=== PATIENT | male | born 1960 | race Caucasian/White ===

== ENCOUNTER 2017-05-24 05:15 | Inpatient (IN) | payer BC ==
[2017-05-11 11:21] VITALS: BMI 25.0
--- NOTE | 2017-05-11 11:44 | PAT Medication Instructions ---
Service Date May 11, 2017. Current Home Medication List Naproxen (Aleve), 440 MG PO QAM Pseudoephedrine-Guaifenesin (Mucinex D), 1 TAB PO PRN Medication Instructions For Your Scheduled Surgery - Hold the following medications 1 week prior to surgery per your surgeon's instructions: Naproxen (Aleve), 440 MG PO QAM - Take the following medications as scheduled the night before surgery: Pseudoephedrine-Guaifenesin (Mucinex D), 1 TAB PO PRN (if needed) If you have any questions please call us at [phone] or [phone] or [phone]
--- NOTE | 2017-05-11 12:46 | DIAGNOSTIC IMAGING REPORT ---
CHEST 2 VIEWS ROUTINE CLINICAL HISTORY: PAT preoperative evaluation COMPARISON STUDY: 07/08/2015 FINDINGS: The bones soft tissues and hemidiaphragms are normal. The cardiomediastinal silhouette is normal. The lungs are clear. The pulmonary vasculature is normal. IMPRESSION: Negative chest. The above report was generated using voice recognition software. It may contain grammatical, syntax or spelling errors. Electronically signed by: Travis Erazo M.D. 05/11/2017 12:45 PM Dictated Date/Time: 05/11/2017 12:44 PM
[2017-05-11 13:34] LABS: BASO % 0.2 %; BASO ABS # 0.02 K/uL (0-0.2); COMPLETE YES; EOS % 1.1 %; HEMATOCRIT 40.3 % (42-52); IG% 0.1 %; LYMPH % 10.4 %; LYMPH ABS # 0.87 K/uL (1.2-3.4); MEAN CELL VOLUME 96.2 fL (80-100); MEAN CORPUSCULAR HEMOGLOBIN 32.2 pg (25-34); MEAN CORPUSCULAR HGB CONC 33.5 g/dl (32-36); MEAN PLATELET VOLUME 10.7 fL (7.4-10.4); MONO % 8.1 %; NEUT % 80.1 %; PLATELET COUNT 257 K/uL (130-400); RED BLOOD COUNT 4.19 M/uL (4.7-6.1)
[2017-05-11 13:43] LABS: PARTIAL THROMBOPLASTIN RATIO 1.2; PROTHROMBIN TIME (PATIENT) 10.3 SECONDS (9.0-12.0)
[2017-05-11 13:53] LABS: BUN/CREATININE RATIO 27.4 (10-20); CALCIUM 8.9 mg/dl (8.5-10.1); CREATININE 0.73 mg/dl (0.60-1.40); POTASSIUM 4.2 mmol/L (3.5-5.1)
[2017-05-11 13:54] LABS: URINE APPEARANCE CLEAR (CLEAR); URINE BILIRUBIN NEG (NEG); URINE COLOR YELLOW; URINE NITRITE NEG (NEG); URINE SPECIFIC GRAVITY 1.027 (1.000-1.030); UROBILINOGEN NEG (NEG); ZZUR CULT IF INDIC CLEAN CATCH NO
[2017-05-11 13:56] LABS: MANUAL MICROSCOPIC REQUIRED? NO; REVIEW REQ? NO
[2017-05-12 06:44] LABS: ESTIMATED AVERAGE GLUCOSE 114 mg/dl; HA1C FLAG Normal (Normal)
--- NOTE | 2017-05-23 19:56 | HISTORY & PHYSICAL EXAMINATION ---
DATE OF ADMISSION: 05/24/2017 CHIEF COMPLAINT: Chronic left hip pain. HISTORY OF PRESENT ILLNESS: This is a 57-year-old male patient of Dr. Dalton'moises complaining of chronic left hip pain, longstanding, now progressively getting worse. The patient has failed conservative treatment including anti-inflammatories and home exercise program. The patient has increased pain with weightbearing activities and his pain does interfere with his activities of daily living. PAST MEDICAL HISTORY: Osteoarthritis, sciatica, otherwise healthy 67-year-old male. SOCIAL HISTORY: Nonsmoker, 5 drink per week drinker. No smoking. PAST SURGICAL HISTORY: Right hip resurfacing. FAMILY HISTORY: Noncontributory. REVIEW OF SYSTEMS: The patient complains of chronic left hip pain. Otherwise, denies any shortness of breath, chest pain, nausea, vomiting or any other joint complaints. MEDICATIONS: Aleve twice a day as needed. No prescription drugs. ALLERGIES: No known drug allergies. PHYSICAL EXAMINATION: GENERAL: Well-developed, well-nourished 57-year-old male in no acute distress. He is alert and oriented x3 and pleasant. HEENT: Normocephalic, atraumatic. Extraocular motions are intact. Pupils are equal and reactive to light. HEART: Regular rate and rhythm, no murmurs appreciated. LUNGS: Clear. ABDOMEN: Soft, nontender, bowel sounds are present. EXTREMITIES: He has pain with internal and external rotation passively with the hip into the groin and lateral hip area. He has 5/5 strength. NEUROLOGIC: Neurovascularly, he is intact in his left lower extremity. DIAGNOSES: Left hip end-stage osteoarthritis. He has a history of osteoarthritis and sciatica. Otherwise, a healthy 57-year-old male. PLAN: The patient was advised of his diagnosis. Indications, risks, benefits, and postop course have all been reviewed. The patient wishes to proceed with a left total hip arthroplasty. Necessary consent forms, preoperative testing and clearances will be obtained.
[2017-05-24] VITALS (10 sets, daily range): BP systolic 98–113; BP diastolic 60–69; PULSE 55–72; TEMP 36.5–36.8; O2SAT 95–99; Ht 180.3 cm; Wt 82.9 kg
[~2017-05-24] VITALS: Ht 180.3 cm; Wt 82.9 kg
[~2017-05-24 05:15] MED LIST: NAPR1TAB9 PO; PSEU60TA80 PO
[2017-05-24] MEDS ORDERED: ROPIVACAINE 5MG/ML 30 ML 150 MG, BUPIVACAINE 0.5% MPF INJ 30 ML, EpINEphrine HCL INJ 0.... INFIL SCH ×7 (06:00)
[2017-05-24] MEDS ORDERED: DEXAMETHASONE 4 MG TAB PO SCH (06:00)
[2017-05-24] MEDS ORDERED: LACTATED RINGER'S 1000ML 1,000 ML IV SCH (06:00)
[2017-05-24] MEDS ORDERED: LACTATED RINGER'S 1000ML IV SCH (06:00)
[2017-05-24] MEDS ORDERED: METOCLOPRAMIDE HCL 10 MG TAB PO SCH (06:00)
[2017-05-24] MEDS ORDERED: CEFAZOLIN 2000MG IV PUSH 10 ML IV SCH (06:00)
[2017-05-24] MEDS ORDERED: LACTATED RINGER'S 1000ML 500 ML IV ONE (06:00)
[2017-05-24] MEDS ORDERED: ACETAMINOPHEN 500 MG TAB PO SCH (06:00)
[2017-05-24] MEDS ORDERED: FAMOTIDINE 20 MG TAB PO SCH (06:00)
[2017-05-24] MEDS ORDERED: GABAPENTIN 300 MG CAP PO SCH (06:00)
[2017-05-24] MEDS ORDERED: CeleBREX 200 MG CAP PO SCH (06:00)
[2017-05-24] MEDS ORDERED: BUPIVACAINE 0.5 % 5 MG/1 ML PF 10ML VIAL ONE (06:28)
[2017-05-24] MEDS: TRANEXAMIC ACID INJ 1,000 MG in SYRINGE 0 ML IV SCH ×2 (06:30→06:50)
[2017-05-24] MEDS ORDERED: ORTHO JOINT ANESTHETIC ONE (06:40)
[2017-05-24] MEDS ORDERED: POVIDONE-IODINE OP SOLN 30 ML BTL ONE (06:41)
[2017-05-24] MEDS ORDERED: BACITRACIN 50000 UNIT VIAL ONE (06:41)
[2017-05-24] MEDS ORDERED: FENTANYL CITRATE INJ 50 MCG/1 ML 2 ML VIAL ONE (06:53)
[2017-05-24] MEDS ORDERED: MIDAZOLAM HCL 1 MG/ML 2ML VIAL ONE ×2 (06:53→07:59)
[2017-05-24] MEDS ORDERED: LIDOCAINE HCL 2% 2 ML VIAL (20MG/ML) ONE (06:57)
[2017-05-24] MEDS ORDERED: PROPOFOL IV EMULSION 10 MG/ML 20 ML VIAL IV ONE (06:57)
[2017-05-24] MEDS ORDERED: ONDANSETRON INJ 2 MG/ML 2 ML VIAL IV PRN ×2 (07:00→10:00)
[2017-05-24] MEDS ORDERED: EpHEDrine SULFATE INJ 50 MG/ML AMP IV PRN (07:00)
[2017-05-24] MEDS ORDERED: FENTANYL CITRATE INJ 50 MCG/1 ML 2 ML VIAL IV PRN (07:00)
[2017-05-24] MEDS ORDERED: ATROPINE SULFATE 0.1 MG/ML 5ML SYR IV PRN (07:00)
--- NOTE | 2017-05-24 07:21 | History & Physical Bridge Note ---
H&P Re-Evaluation Bridge Note: I have examined the patient, reviewed the History & Physical and in the interval since the performance of the History & Physical I have noted the following changes of clinical significance: No changes noted
[2017-05-24] MEDS ORDERED: EpHEDrine SULFATE 50MG/5ML SYR ONE (08:55)
--- NOTE | 2017-05-24 09:35 | [facility] Post Operative Brief Note ---
Immediate Operative Summary Operative Date May 24, 2017. Pre-Operative Diagnosis Left hip end-stage osteoarthritis Post-Operative Diagnosis Same as preop Procedure(s) Performed Left total hip arthroplasty, uncemented Surgeon Dr. Dalton Administrative Assistant Surgeon(s) Gautam Garces PA-C Estimated Blood Loss 175 cc Findings end stage djd oa Specimens A: left femoral head Drains 2 hemovac Complication(s) None Disposition Recovery Room / PACU
[2017-05-24] MEDS ORDERED: ZOLPIDEM TARTRATE 5 MG TAB PO PRN (10:00)
[2017-05-24] MEDS ORDERED: TRAMADOL HCL 50 MG TAB PO PRN (10:00)
[2017-05-24] MEDS ORDERED: BISACODYL 10 MG SUPP PR PRN (10:00)
[2017-05-24] MEDS ORDERED: SOD PHOSPHATE/SOD BIPHOSPHATE ENEMA 132 ML BTL PR PRN (10:00)
[2017-05-24] MEDS ORDERED: METOCLOPRAMIDE HCL INJ 5 MG/ML 2 ML VIAL IV PRN (10:00)
[2017-05-24] MEDS ORDERED: MoRPHine SULFATE 2 MG/ML CARP IV PRN (10:00)
[2017-05-24] MEDS ORDERED: MAGNESIUM HYDROXIDE SUSP 30 ML UDC PO PRN (10:00)
[2017-05-24] MEDS ORDERED: OXYCODONE HCL IR 5 MG TAB (IMMEDIATE RELEASE) PO PRN (10:00)
[2017-05-24] MEDS ORDERED: PSEUDOEPHEDRINE GUAIFENESIN PO SCH (10:00)
--- NOTE | 2017-05-24 10:59 | Anesthesiology Progress Note ---
Anesthesia Post Op Note Date & Time May 24, 2017 at 10:59 Vital Signs Pain Intensity: 0 Vital Signs Past 12 Hours Date Time Temp Pulse Resp B/P (MAP) Pulse Ox O2 Delivery O2 Flow Rate FiO2 05/24/17 10:45 64 13 101/62 98 Nasal Cannula 2 05/24/17 10:35 61 14 107/66 98 Nasal Cannula 2 05/24/17 10:25 37.0 66 16 105/63 98 Nasal Cannula 2 05/24/17 10:15 63 13 98/60 (69) 98 Nasal Cannula 2 05/24/17 10:05 64 15 102/62 100 Nasal Cannula 2 05/24/17 09:59 37.0 63 12 96/65 (68) 100 Oxymask 10 05/24/17 05:39 36.8 70 18 113/67 98 Room Air Notes Mental Status: alert / awake / arousable, participated in evaluation Pt Amnestic to Procedure: Yes Nausea / Vomiting: adequately controlled Pain: adequately controlled Airway Patency, RR, SpO2: stable & adequate BP & HR: stable & adequate Hydration State: stable & adequate Neuraxial Anesthesia: was administered, sensory block is resolving Anesthetic Complications: no major complications apparent
--- NOTE | 2017-05-24 11:08 | DIAGNOSTIC IMAGING REPORT ---
SINGLE VIEW PELVIS; SINGLE VIEW LEFT HIP CLINICAL HISTORY: Postoperative examination. FINDINGS: An AP portable view of the hips and pelvis with a crosstable lateral portable view of the left hip are obtained. A bipolar left hip arthroplasty is in near-anatomic alignment. At least 2 cortical lag screws transfix the acetabular cup. No acute fracture is identified. There are expected postoperative changes overlying the left hip including skin clips, subcutaneous gas, a surgical drain, and soft tissue swelling. A right hip arthroplasty is noted. IMPRESSION: Expected postoperative findings status post left hip arthroplasty. No acute fracture is seen. Electronically signed by: Aguila Garcia M.D. 05/24/2017 11:07 AM Dictated Date/Time: 05/24/2017 11:07 AM
[2017-05-24] MEDS ORDERED: GUAIFENESIN 600 MG TABCR PO PRN (12:00)
[2017-05-24] MEDS ORDERED: PSEUDOEPHEDRINE HCL 30 MG TAB PO PRN (12:00)
[2017-05-24] MEDS: D5W AND 1/2NSS + 20MEQ KCL 1,000 ML IV SCH ×2 (12:16→21:18)
[2017-05-24] MEDS: CEFAZOLIN IV 2,000 MG in SYRINGE 0 ML IV SCH ×2 (14:22→21:18)
[2017-05-24] MEDS: ACETAMINOPHEN 500 MG TAB PO SCH ×2 (14:30→21:19)
--- NOTE | 2017-05-24 15:32 | Medical Consult ---
Consultation Date of Consultation: May 24, 2017. Attending Physician: Bulmaro Dalton M.D. Reason for Consultation: Medical management History of Present Illness This is a 57 yo M with PMhx of osteoarthritis, sciatica, with alcohol use of 1beer daily and chronic chewing tobacco use x 10 years, who presents for an elective Left hip arthroplasty by Dr. Dalton. The patient reports he is doing well currently, and is having some pain now through this left thigh. He denies any numbness or tingling at this point. Pt reports being a very active person and mountain bikes 2-3 x per week regularly and is hoping to get back to this soon. They are still discussing PT/OT home health vs outpatient options. His is present with him at bedside. No other acute complaints. Past Medical/Surgical History Medical Problems: (1) Degenerative joint disease of left hip (2) Osteoarthritis Surgical Problems: (1) Post-operative state Social History Problems: (1) Alcohol use (2) Chewing tobacco nicotine dependence Family History Noncontributory Social History Smoking Status: Never Smoker Smokeless Tobacco Use: Yes Alcohol Use: heavy (1 beer daily) Drug Use: none Marital Status: Housing Status: lives with family Occupation Status: employed Allergies Coded Allergies: No Known Allergies (Unverified , 05/24/17) NONE Current Inpatient Medications Current Inpatient Medications Medications (Trade) Dose Ordered Sig/Lora Route Start Time Stop Time Status Last Admin Dose Admin Cefazolin Sodium 10 ml @ 2.5 mls/min PREOP IV 05/24/17 06:00 05/24/17 18:00 05/24/17 06:00 2.5 MLS/MIN Acetaminophen (Tylenol Tab) 1,000 mg PREOP PO 05/24/17 06:00 05/24/17 18:00 05/24/17 05:56 1,000 MG Celecoxib (CeleBREX CAP) 200 mg PREOP PO 05/24/17 06:00 05/24/17 18:00 05/24/17 05:56 200 MG Dexamethasone (Decadron Tab) 8 mg PREOP PO 05/24/17 06:00 05/24/17 18:00 05/24/17 05:56 8 MG Famotidine (Pepcid Tab) 20 mg PREOP PO 05/24/17 06:00 05/24/17 18:00 05/24/17 05:56 20 MG Gabapentin (Neurontin Cap) 600 mg PREOP PO 05/24/17 06:00 05/24/17 18:00 05/24/17 05:55 600 MG Metoclopramide HCl (Reglan Tab) 10 mg PREOP PO 05/24/17 06:00 05/24/17 18:00 05/24/17 05:56 10 MG Potassium Chloride/Dextrose/ Sod Cl 1,000 ml @ 100 mls/hr Q10H IV 05/24/17 12:00 05/25/17 09:58 05/24/17 12:16 100 MLS/HR Celecoxib (CeleBREX CAP) 200 mg BID PO 05/24/17 21:00 06/23/17 20:59 Oxycodone HCl (Roxicodone Immediate Rel Tab) 1 TABLET FOR PAIN RATING... Q4H PRN PO 05/24/17 10:00 06/07/17 09:59 Morphine Sulfate (MoRPHine SULFATE INJ) as needed Q2H PRN IV 05/24/17 10:00 06/07/17 09:59 Acetaminophen (Tylenol Tab) 1,000 mg Q8 PO 05/24/17 14:00 06/23/17 13:59 05/24/17 14:30 1,000 MG Magnesium Hydroxide (Milk Of Magnesia Susp) 30 ml Q6H PRN PO 05/24/17 10:00 06/23/17 09:59 Bisacodyl (Dulcolax Supp) 10 mg DAILY PRN W[place] 05/24/17 10:00 06/23/17 09:59 Sodium Biphosphate/ Sodium Phosphate (Fleet Enema) 132 ml DAILY PRN WV 05/24/17 10:00 06/23/17 09:59 Docusate Sodium (coLACE CAP) 100 mg BID PO 05/24/17 21:00 06/23/17 20:59 Diphenhydramine HCl (Benadryl Cap) 25 mg Q8H PRN PO 05/24/17 10:00 06/23/17 09:59 Zolpidem Tartrate (Ambien Tab) 5 mg HSZ PRN PO 05/24/17 10:00 06/23/17 09:59 Multivitamins (Multivitamin Tab) 1 tab QAM PO 05/25/17 09:00 06/24/17 08:59 Ondansetron HCl (Zofran Inj) 4 mg Q6H PRN IV 05/24/17 10:00 06/23/17 09:59 Metoclopramide HCl (Reglan Inj) 10 mg Q6H PRN IV 05/24/17 10:00 06/23/17 09:59 Pantoprazole Sodium (Protonix Tab) 40 mg QAM PO 05/25/17 09:00 06/24/17 08:59 Tramadol HCl (Ultram Tab) 1 TABLET FOR PAIN RATING... Q4H PRN PO 05/24/17 10:00 06/23/17 09:59 Cefazolin Sodium 2000 mg/Syringe 10 ml @ 100 mls/hr Q8H IV 05/24/17 14:00 05/24/17 22:05 05/24/17 14:22 100 MLS/HR Aspirin (Ecotrin Tab) 81 mg BID PO 05/24/17 21:00 06/23/17 20:59 Guaifenesin (Mucinex Contr Rel Tab) 1,200 mg DAILY PRN PO 05/24/17 12:00 06/23/17 11:59 Pseudoephedrine HCl (Sudafed Tab) 120 mg DAILY PRN PO 05/24/17 12:00 06/23/17 11:59 Review of Systems Constitutional: No fever, No chills, No sweats, No weight loss, No fatigue Eyes: No redness, No diplopia ENT: No unusual epistaxis, No nasal symptoms, No sore throat Respiratory: No cough, No sputum, No wheezing, No shortness of breath, No dyspnea on exertion Cardiovascular: No chest pain, No edema Abdomen: No pain, No nausea, No vomiting, No diarrhea, No constipation Musculoskeletal: + joint pain (Left hip slightly painful), No swelling, No calf pain Neurologic: No weakness, No numbness/tingling Psychiatric: No depression symptoms, No anxiety Endocrine: No fatigue Integumentary: No rash, No itch Physical Exam Date Time Temp Pulse Resp B/P (MAP) Pulse Ox O2 Delivery O2 Flow Rate FiO2 05/24/17 15:01 36.7 72 16 106/63 (77) 97 Nasal Cannula 2.0 05/24/17 13:58 36.5 62 16 109/66 (80) 99 2.0 12/14/17 12:10 55 16 98/60 (73) 99 2.0 05/24/17 11:42 55 16 99/62 (74) 95 2.0 05/24/17 11:20 Nasal Cannula 2.0 05/24/17 11:10 36.7 60 16 103/62 (76) 98 Nasal Cannula 2.0 05/24/17 11:10 Nasal Cannula 2.0 05/24/17 11:00 63 15 106/66 98 Nasal Cannula 2 05/24/17 10:45 64 13 101/62 98 Nasal Cannula 2 05/24/17 10:35 61 14 107/66 98 Nasal Cannula 2 05/24/17 10:25 37.0 66 16 105/63 98 Nasal Cannula 2 05/24/17 10:15 63 13 98/60 (69) 98 Nasal Cannula 2 05/24/17 10:05 64 15 102/62 100 Nasal Cannula 2 05/24/17 09:59 37.0 63 12 96/65 (68) 100 Oxymask 10 05/24/17 05:39 36.8 70 18 113/67 98 Room Air General Appearance: WD/WN, no apparent distress Head: normocephalic, atraumatic Eyes: PERRL, EOMI ENT: hearing grossly normal, pharynx normal Neck: supple, no JVD Respiratory/Chest: lungs clear, no accessory muscle use, + pertinent finding ( on 2 L via NC) Cardiovascular: regular rate, rhythm, no murmur, normal peripheral pulses Abdomen/GI: normal bowel sounds, non tender, soft Back: normal inspection Extremities/Musculoskelatal: normal inspection, no pedal edema, + pertinent finding (L hip with DAPHNE drain in place, bandage is C/D/I, ice pack in place) Neurologic/Psych: alert, normal mood/affect, oriented x 3 Skin: normal color, warm/dry Assessment & Plan (1) Osteoarthritis Status: Chronic (2) Degenerative joint disease of left hip Status: Chronic Assessment & Plan: - S/p Left Total hip arthroplasty by Dr. Dalton - Pain management, DVT ppx, and bowel regimen per the primary team - PT/OT on board (3) Chewing tobacco nicotine dependence Status: Chronic Assessment & Plan: - Cessation encouraged, pt denies need for nicotine patch (4) Alcohol use Status: Chronic Assessment & Plan: - Cessation encouraged - Pt denies need for an alcoholic drink, no withdrawal symptoms. Thank you for involving us in the care of Mr. Olvera, at this time medicine will sign off.
--- NOTE | 2017-05-24 19:04 | OPERATIVE REPORT ---
DATE OF OPERATION: 05/24/2017 INDICATION FOR PROCEDURE: The patient is a 57-year-old male who presents with chronic progressive osteoarthritis in his left hip. He has had a previous hip resurfacing by Dr. Zambrano. We had extensive discussion and he chose to proceed with left hip replacement at this time. Radiographs demonstrate [id number] in the left hip, some bone loss and superior lateral subluxation. He has a well-aligned resurfacing of his right hip. PREOPERATIVE DIAGNOSIS: End-stage osteoarthritis, left hip. POSTOPERATIVE DIAGNOSIS: Same. PROCEDURE: Left total hip arthroplasty. SURGEON: Bulmaro Dalton MD. FINANCIAL REPORTING ADVISOR: EDEN Valera. ANESTHESIA: Spinal sedation and Orthomix. OPERATIVE PROCEDURE: The patient taken to the operating room, anesthetized under anesthesia as dictated. He was placed supine on the operating room table. He was placed on a sacral pad. We placed a roll under his lumbar spine for support. Placed a foot roll to flex the knee 90 degrees and hip 60 degrees at his knee. His left hip exam demonstrated that he had decreased range of motion and flexion only to about 95 degrees. He was a thin individual. His left hip was sterilely prepped and draped in usual sterile fashion. We did place bed in some slight Trendelenburg and tilted the bed to the right to help expose the left hip. We used ChloraPrep for the prep. Approach to the hip was a lateral approach with a longitudinal incision over the lateral hip area. Skin was incised sharply. Subcutaneous flaps were elevated. The fascia was divided longitudinally and the gluteus estelita fascia was split proximally. The patient had intact gluteus medius tendon. The gluteus medius was split between its anterior 40% and posterior 60%. A curvilinear incision was made through the gluteus medius leaving a cuff of tissue for repair on the trochanter and the vastus lateralis was split for about 3 cm. Muscular capsular flap was elevated off the hip joint. Hip joint demonstrated severe DJD, bone on bone, some flattening in the humeral head, but no AVN, sclerotic bone all consistent with osteoarthritis. He had femoral neck osteophytes. I used the [place] [employer] Accolade II stem and the Trident PSL cup for the procedure. To expose the hip, first, I made a femoral neck cut 15 mm proximal to the lesser trochanter in neutral anteversion. I then placed acetabular retractors. The inferior medial osteophytes were resected. The acetabular labrum was resected. Soft tissue in the acetabular fossa was resected and he had some bleeders that were cauterized. The first reamer used was a 44 mm reamer to medialize the reaming to the inner table and then sequential reamers up to a 54, which had appropriate fit and fill. We did a trial for the Jessica PSL 54 cup and that was satisfactory. Then went ahead and irrigated out copiously with antibiotic solution with bacitracin and then impacted in the [place] Trident PSL 54 mm caplet cuff. It was placed in approximately 15 degrees of anteversion and around 45 degrees of abduction. There was excellent press fit. Two additional screws 6.5 x 20 and 25 mm screws were placed in the posterior superior quadrant. The patient had very hard dense bone and excellent fixation of the screws. The Trident X3 poly 10 degree liner, 36 mm F then impacted into the shell and then we proceeded to expose the femur with flexion and external rotation for the femoral preparation. A box osteotome canal reamer and sequential broaches up to size 6 stem were used. We did a trial reduction and a -5 neck length gave equal leg lengths and good stability. Trials were removed and then we injected the Orthomix anesthetic cocktail around the capsule and acetabular component, we irrigated this out with antibiotic solution and then re-exposed the femur, irrigated that out and then went ahead and impacted in the Accolade II size 6 stem, 132-degree neck angle and placed on the -5 ceramic Biolox head. This was reduced into the glenoid. After further copious irrigation and assessing stability which was stable through full range of motion and leg lengths were equal, I went ahead and repaired the abductors using transosseous #5 FiberWire sutures with Mike-Otto suture technique for the medius. The minimus was closed with interrupted [id number] #1 Vicryl sutures. The vastus lateralis was repaired with [id number] #1 Vicryl sutures and the gluteus medius split was closed with interrupted [id number] #1 Vicryl sutures. The fascia kerry was closed with [id number] #1 Vicryl sutures. We did place more Orthomix into the other soft tissues of the hip prior to closure per protocol. We did use a Betadine soak also prior to closure. We did use 2 Hemovac drains that were brought out laterally as well. Final layers were closed with 2-0 Vicryl subcutaneous and skin sandra and sterile dressings were applied. The patient had approximately 200 mL of blood loss and tolerated the procedure well. EDEN Valera was my minister assistant. He functioned as the cafe assistant through the entire procedure. He assisted in patient positioning, prepping, draping, assisted in soft tissue retraction, instrument management during the procedure and did perform the outer fascial and subcutaneous and skin closure and will participate in some of the postoperative care of the patient. I attest to the content of the Intraoperative Record and any orders documented therein. Any exception s are noted below.
[2017-05-24] MEDS: ASPIRIN 81 MG ECTAB PO SCH (21:18)
[2017-05-24] MEDS: CeleBREX 200 MG CAP PO SCH (21:18)
[2017-05-24] MEDS: DOCUSATE SODIUM 100 MG CAP PO SCH (21:18)
[2017-05-25 03:30] VITALS: BP 109/66; PULSE 65; TEMP 36.4; O2SAT 98
[2017-05-25] MEDS: ACETAMINOPHEN 500 MG TAB PO SCH (05:57)
[2017-05-25] MEDS: D5W AND 1/2NSS + 20MEQ KCL 1,000 ML IV SCH (05:58)
[2017-05-25 06:01] LABS: BASO % 0.1 %; BASO ABS # 0.01 K/uL (0-0.2); COMPLETE YES; EOS % 0.2 %; HEMATOCRIT 33.8 % (42-52); IG% 0.2 %; LYMPH % 11.8 %; LYMPH ABS # 1.24 K/uL (1.2-3.4); MEAN CELL VOLUME 94.2 fL (80-100); MEAN CORPUSCULAR HEMOGLOBIN 31.2 pg (25-34); MEAN CORPUSCULAR HGB CONC 33.1 g/dl (32-36); MONO % 6.3 %; NEUT % 81.4 %; PLATELET COUNT 248 K/uL (130-400); RED BLOOD COUNT 3.59 M/uL (4.7-6.1); WHITE BLOOD COUNT 10.55 K/uL (4.8-10.8)
[2017-05-25 06:34] LABS: BUN/CREATININE RATIO 23.2 (10-20); CALCIUM 7.7 mg/dl (8.5-10.1); CREATININE 0.76 mg/dl (0.60-1.40); POTASSIUM 3.9 mmol/L (3.5-5.1)
[2017-05-25 07:49] VITALS: BP 102/65; PULSE 57; TEMP 36.5; O2SAT 98
--- NOTE | 2017-05-25 08:16 | Orthopedic Progress Note ---
Orthopedic Progress Note Date of Service May 25, 2017. Subjective Post OP Day: 1 Reports: feeling well, pain controlled w PO medications, Denies: complaints, chest pain, SOB, nausea / vomiting, light headedness, calf pain Objective calves soft nontender, N/V intact, hip located, capillary refill less than 2 sec., dressing C/D/I, A&O x3, toes mobile Silverlon in tact. Date Time Temp Pulse Resp B/P (MAP) Pulse Ox O2 Delivery O2 Flow Rate FiO2 05/25/17 07:49 36.5 57 18 102/65 (77) 98 Room Air 05/25/17 07:32 Room Air 05/25/17 03:30 36.4 65 16 109/66 (80) 98 Room Air 05/24/17 23:10 36.7 57 16 113/69 (84) 97 Room Air 05/24/17 21:10 Room Air 05/24/17 20:07 98 Nasal Cannula 2.0 05/24/17 19:35 36.8 58 18 108/67 (81) 98 Nasal Cannula 2.0 05/24/17 19:30 36.8 58 18 108/67 (81) 98 2.0 05/24/17 16:45 Nasal Cannula 2.0 05/24/17 15:01 36.7 72 16 106/63 (77) 97 Nasal Cannula 2.0 05/24/17 13:58 36.5 62 16 109/66 (80) 99 2.0 05/24/17 12:10 55 16 98/60 (73) 99 2.0 05/24/17 11:42 55 16 99/62 (74) 95 2.0 05/24/17 11:20 Nasal Cannula 2.0 05/24/17 11:10 36.7 60 16 103/62 (76) 98 Nasal Cannula 2.0 05/24/17 11:10 Nasal Cannula 2.0 05/24/17 11:00 63 15 106/66 98 Nasal Cannula 2 05/24/17 10:45 64 13 101/62 98 Nasal Cannula 2 05/24/17 10:35 61 14 107/66 98 Nasal Cannula 2 05/24/17 10:25 37.0 66 16 105/63 98 Nasal Cannula 2 05/24/17 10:15 63 13 98/60 (69) 98 Nasal Cannula 2 05/24/17 10:05 64 15 102/62 100 Nasal Cannula 2 05/24/17 09:59 37.0 63 12 96/65 (68) 100 Oxymask 10 Laboratory Results 24 Hours: Test 05/25/17 05:27 White Blood Count 10.55 K/uL Red Blood Count 3.59 M/uL Hemoglobin 11.2 g/dL Hematocrit 33.8 % Mean Corpuscular Volume 94.2 fL Mean Corpuscular Hemoglobin 31.2 pg Mean Corpuscular Hemoglobin Concent 33.1 g/dl Platelet Count 248 K/uL Mean Platelet Volume 10.0 fL Neutrophils (%) (Auto) 81.4 % Lymphocytes (%) (Auto) 11.8 % Monocytes (%) (Auto) 6.3 % Eosinophils (%) (Auto) 0.2 % Basophils (%) (Auto) 0.1 % Neutrophils # (Auto) 8.60 K/uL Lymphocytes # (Auto) 1.24 K/uL Monocytes # (Auto) 0.66 K/uL Eosinophils # (Auto) 0.02 K/uL Basophils # (Auto) 0.01 K/uL Assessment & Plan Assessment: POD #1, Left PRETTY Plan: PT/ OT DVT proph- ASA D/C planning- Home w HH likely Sat. As per medicine. Inhouse Planning Pain Management: Celebrex, Ultram, Morphine, PO Tylenol, Oxy IR DVT Prophylaxis: TEDs, SCDs, ASA Discharge Planning Discharge Planning: home with home health Pain Management: Celebrex, PO Tylenol, Oxy IR DVT Prophylaxis: TEDs, ASA Therapy: Physical Therapy, Occupational Therapy
--- NOTE | 2017-05-25 08:18 | Discharge Instructions ---
Discharge Instructions Date of Service May 25, 2017. Admission Reason for Admission: Left Hip Degenerative Joint Disease Discharge Discharge Diagnosis / Problem: Left PRETTY Discharge Goals Goal(s): Improve function Activity Recommendations Activity Limitations: as noted below . Instructions / Follow-Up Instructions / Follow-Up ACTIVITY RECOMMENDATIONS: SELF CARE INSTRUCTIONS AFTER TOTAL HIP REPLACEMENT Until the incision and soft tissues around your hip have healed, there is a possibility that the hip prosthesis could dislocate. A. Observe the following precautions to prevent dislocation: 1. Don't bend your hip greater than 90 degrees. 2. Avoid crossing your legs or ankles while standing or lying. 3. Sit with your feet placed 6 inches apart. 4. When sitting, keep your knees below your hips. Sit on a firm surface, avoid deep, soft chairs and couches. Use an elevated toilet seat in the bathroom. 5. Don't bend over at the waist. Use a long handled shoehorn and a sock aid to help you put on your shoes and socks. A heat sealing machine operator can help you milk pickup truck driver objects that are too high or too low to reach. 6. Keep car riding to a minimum for at least one month after surgery. B. Your balance may be shaky for a while. Use crutches or a walker until directed by your doctor. C. Use hand rails when walking on stairs. D. Wear low heeled shoes with non-slip soles. E. Be sure that your floors are free of things that could trip you - throw rugs , electrical cords, small objects. Avoid wet and waxed floors, especially with crutches and canes. F. Try to walk several times a day with rest periods between. G. Continue with all the exercises taught to you in the hospital. Again, make walking a part of your daily routine. SPECIAL CARE INSTRUCTIONS: VERY IMPORTANT TO READ AND REVIEW A. You may still be at risk for phlebitis and blood clots. 1. Wear surgical stockings (ALEJANDRO hose) for 2 weeks after surgery to improve circulation and reduce swelling. 2. Take Aspirin 81mg twice daily for 4 weeks or as directed by your doctor. This is your blood thinner. 3. High risk patients may be prescribed a stronger blood thinner if necessary. 4. If you are on Coumadin normally, your family doctor/line assembler aircraft should monitor your blood work. Expect a phone call the day of or the day after bloodwork is drawn to adjust your dosage. B. You must take antibiotics before having dental work, bladder, bowel and other surgery. Your doctor will provide you with a permanent card to carry describing precautions. C. Call [facility] if you have a fever, redness or swelling around the incision, cloudy drainage from incision, or sudden increase in pain in your hip, not relieved by your regular pain medication. D. Please call the office at if you have any concerns or questions about your operation or recovery. * YOU MAY SHOWER, NO TUB BATHS UNTIL CLEARED BY YOUR DOCTOR. * WEAR ALEJANDRO HOSE 20 HOURS PER DAY FOR 2 WEEKS. * YOU SHOULD USE A WALKER OR CRUTCHES FOR 2-4 WEEKS. THIS WILL HELP PREVENT STRAIN ON YOUR HIP MUSCLE AND ALLOW IT TO HEAL PROPERLY. YOU MAY WEAN TO A CANE TOLERATED. * MOST PATIENTS WILL HAVE HOME NURSING FOR THERAPY. IF YOU DECIDE TO DO OUTPATIENT PHYSICAL THERAPY, PLEASE SCHEDULE THIS 3 TIMES PER WEEK. * YOU MAY HAVE A LARGE, BAND-JUANA LIKE DRESSING (SILVERON). THIS WILL REMAIN ON YOUR INCISION FOR 7 DAYS, THEN CAN BE REMOVED. IF INCISION IS LEAKING THROUGH DRESSING, PLEASE CALL THE OFFICE . FOLLOW UP VISIT: If appointment is not already scheduled: Please call [facility] to make a follow-up appointment for 2 weeks after your surgery at . Current Hospital Diet Patient's current hospital diet: Regular Diet Discharge Diet Recommended Diet: Regular Diet Procedures Procedures Performed: Left total hip arthroplasty, uncemented Pending Studies Studies pending at discharge: no Laboratory Results Hemoglobin A1c Test 05/11/17 12:00 Range/Units Estimated Average Glucose 114 mg/dl Hemoglobin A1c 5.6 4.5-5.6 % Medical Emergencies . Who to Call and When: Medical Emergencies: If at any time you feel your situation is an emergency, please call 911 immediately. . Non-Emergent Contact Non-Emergency issues call your: Primary Care Provider . "Provider Documentation" section prepared by Travis Garces. . VTE Core Measure Inpt VTE Proph given/why not?: Other Anticoagulation (asa), T.EBart Del Cid, SCD's [place] Drug Monitoring Program Search Results: patient reviewed within database, no issues identified
[2017-05-25] MEDS: ASPIRIN 81 MG ECTAB PO SCH (08:45)
[2017-05-25] MEDS: DOCUSATE SODIUM 100 MG CAP PO SCH (08:45)
[2017-05-25] MEDS: CeleBREX 200 MG CAP PO SCH (08:46)
[2017-05-25] MEDS ORDERED: MULTIVITAMIN TAB PO SCH (09:00)
[2017-05-25] MEDS ORDERED: PANTOprazole SOD 40 MG TAB PO SCH (09:00)
[2017-05-25] MEDS ORDERED: CLB200 PO (09:04)
[2017-05-25] MEDS ORDERED: ASPEC81 PO (09:04)
[2017-05-25] MEDS ORDERED: RXC5 PO (09:04)
[2017-05-25] MEDS ORDERED: ACET-24 PO (09:04)
[2017-05-25 09:31] VITALS: O2SAT 98
[2017-05-25 11:46] VITALS: BP 102/65; PULSE 57; TEMP 36.5; O2SAT 98
== END 2017-05-25 13:10 | disposition home health service (06) | DRG 470 ==
LOC: C.ACU 05:15 → C.3E 07:08 → ENRESERV 10:38
PROVIDERS: ADMIT Orthopaedic Surgery Sports Medicine; ATTEND Orthopaedic Surgery Sports Medicine
PROC: 0SRB04A Replacement of Left Hip Joint with Ceramic on Polyethylene Synthetic Substitute, Uncemented, Open Approach (ICD-10-PCS; principal; 2017-05-24 07:00)
DX: M16.12 Unilateral primary osteoarthritis, left hip (principal); F17.220 Nicotine dependence, chewing tobacco, uncomplicated; Z72.89 Other problems related to lifestyle